=== PATIENT | male | born 1965 | race Two or more races ===

== ENCOUNTER → 2016-07-22 | Outpatient (CLI) | payer OTHER ==
--- NOTE | 2016-07-22 17:07 | DX ---
Right shoulder series 3 views 1619 hours. History: Pain following trauma last evening. Slipped on ice. Findings: The glenohumeral joint is normal in appearance. There is no dislocation or subluxation. Mil d degenerative changes are noted at the AC joint with hypertrophic osteophytes. There are no fracture s about the right shoulder. Soft tissues are unremarkable. Impression: 1. No acute osseous abnormality seen about the right shoulder. 2. Moderate degenerative changes right AC joint.
--- NOTE | 2016-07-22 17:18 | DX ---
Right Elbow, 3 Views, at 4:20 p.m. Clinical History: 50-year-old male with pain radiating from the shoulder to the elbow after sustainin g an injury last night while dumping a large recycling bin. Comparison Study: None. Findings: Bone mineralization is preserved, with no lytic or blastic lesion. There is an age-indeterm inate avulsion fragment off the medial humeral condyle. There is a large olecranon enthesophyte. The radial head and neck are intact. There is some mild proximal dorsal forearm soft tissue swelling. The re is no radiopaque foreign body. Impression: 1. Age-indeterminate avulsion fragment off the medial humeral condyle. 2. Degenerative olecranon enthesophyte.
--- NOTE | 2016-07-22 17:40 | DX ---
Facial Bones and Nasal Bones, at 4:35 P.M. Clinical History: 50-year-old male who sustained an injury last evening while dumping a large [employer] bin, complaining of perinasal and supraorbital pain. Comparison Study: None. Findings: FACIAL BONES: The orbital rims are intact. The paranasal sinuses are patent. Temporomandibular joints are anatomically aligned. Impression: There is no acute fracture identified. NASAL BONES: There is a normal appearance to the nasociliary grooves. There is no lucency crossing th e nasal ridge. There is no zygomaticofrontal sutural diastasis. There is no significant nasal septal deviation. Impression: There is no acute fracture identified. If there is a high clinical concern regarding an occult facial fracture, CT imaging could be consider ed.
--- NOTE | 2016-07-22 17:40 | DX ---
Facial Bones and Nasal Bones, at 4:35 P.M. Clinical History: 50-year-old male who sustained an injury last evening while dumping a large [employer] bin, complaining of perinasal and supraorbital pain. Comparison Study: None. Findings: FACIAL BONES: The orbital rims are intact. The paranasal sinuses are patent. Temporomandibular joints are anatomically aligned. Impression: There is no acute fracture identified. NASAL BONES: There is a normal appearance to the nasociliary grooves. There is no lucency crossing th e nasal ridge. There is no zygomaticofrontal sutural diastasis. There is no significant nasal septal deviation. Impression: There is no acute fracture identified. If there is a high clinical concern regarding an occult facial fracture, CT imaging could be consider ed.
== END ==
LOC: BRMIMAGING 15:51
PROVIDERS: ATTEND Internal Medicine
DX: S42.461A Displaced fracture of medial condyle of right humerus, initial encounter for closed fracture (principal); M77.8 Other enthesopathies, not elsewhere classified; M25.711 Osteophyte, right shoulder; J34.89 Other specified disorders of nose and nasal sinuses; R51 Headache
CPT/HCPCS: 70140-PO; 70160-PO; 73030-PO; 73080-PO

== ENCOUNTER → 2016-08-04 | Outpatient (CLI) | payer OTHER | LOC: BRMIMAGING 14:17 | PROVIDERS: ATTEND Internal Medicine | DX: Z13.828 Encounter for screening for other musculoskeletal disorder (principal) | CPT/HCPCS: 73080-PO ==